=== PATIENT | male | born 1945 | race Caucasian/White ===

== ENCOUNTER 2016-08-31 11:04 | Observation (INO) | payer OTHER ==
[2016-08-31] MEDS ORDERED: IPRATROPIUM/ALBUTEROL 3 ML DEYVIAL ONE (11:26)
[2016-08-31] MEDS ORDERED: IPRATROPIUM/ALBUTEROL 3 ML DEYVIAL IH ONE (11:29)
[2016-08-31] MEDS ORDERED: methylPREDNISolone SOD SUCC 125 MG/2 ML VIAL IVP ONE (11:29)
--- NOTE | 2016-08-31 11:29 | EDPHY ---
H & P Time Seen by Provider: 08/31/16 11:12 HPI/ROS: CHIEF COMPLAINT: shortness of breath HISTORY OF PRESENT ILLNESS: Patient is a 71-year-old male with a history of COPD presents emergency department with increasing shortness of breath. He states earlier in the week his had a slight cold. Symptoms resolved. Yesterday felt so he was getting sick with the increasing cough. He took Mucinex. He then had increasing cough productive of white sputum. He has become more short of breath. He normally uses oxygen at night but he has had uses during the day. He has been using his Advair and ProAir with no relief. No fevers or chills. No leg pain or swelling. No chest pain. REVIEW OF SYSTEMS: My complete review of systems is negative except as mentioned in the HPI. Past Medical/Surgical History: Includes COPD Past surgical history: Denies Social history: The patient does not smoke currently Smoking Status: Former smoker Physical Exam: 36.9, 169/84, 116, 24, 64% on room air GENERAL: No acute distress, alert. HEENT: Eyes normal to inspection, normal pharynx, no signs of dehydration. NECK: No thyromegaly, no lymphadenopathy, supple. RESPIRATORY: decreased breath sounds bilaterally. The patient has scattered wheezing. Poor air movement. Mild retractions and accessory muscle use.. CVS: Regular rate and rhythm, no rubs, murmurs, or gallops. ABDOMEN: Soft, nontender, nondistended, no organomegaly. BACK: Normal to inspection, no CVA tenderness. SKIN: Normal color, no rash, warm, dry. No pallor. EXTREMITIES: No pedal edema, no calf tenderness, no Homans sign or cords, no joint swelling. NEURO/PSYCH: Alert and oriented, normal mood and affect, normal motor sensory exam. Constitutional: Initial Vital Signs Temperature (C) 36.9 C 08/31/16 11:07 Heart Rate 116 H 08/31/16 11:07 Respiratory Rate 24 H 08/31/16 11:07 Blood Pressure 169/84 H 08/31/16 11:07 O2 Sat (%) 64 L 08/31/16 11:07 O2 Delivery Mode Room Air Allergies/Adverse Reactions: No Known Allergies Allergy (Unverified 08/31/16 11:07) Home Medications: Medication Instructions Recorded Advair 100/50 (*) 08/31/16 LORAZEPAM 08/31/16 Proair Hfa Icu (*) 08/31/16 Medical Decision Making ED Course/Re-evaluation: In the emergency department patient was placed on oxygen. His O2 saturation was in the low 90s. Laboratory studies, EKG and chest x-ray were performed. I discussed the plan with the patient and answered all his questions. I rechecked the patient after receiving his DuoNeb. He stated he did feel better. On recheck his stay my as bedside. His retractions had decreased. He continued to have scattered wheezing. I ordered repeat albuterol neb. Chest x-ray showed no focal infiltrate. Underlying emphysema. Please refer the dictated report by the radiologist. I rechecked the patient while here. He was staying at the bedside. Still decreased breath sounds bilaterally on exam but is retractions had decreased. His oxygen saturation was 94% on 4 L. I discussed disposition options for the patient. He agrees with admission. I discussed the case with the hospitalist service. He is placed in the EACU. Differential Diagnosis: My differential includes but is not limited to COPD exacerbation, pneumonia, bronchitis, influenza, CHF, bacteremia, sepsis - Data Points Laboratory Results: Laboratory Results 08/31/16 11:40 08/31/16 11:40 08/31/16 08/31/16 11:50 11:40 WBC 8.11 10^3/uL (3.80-9.50) RBC 5.83 10^6/uL (4.40-6.38) Hgb 17.9 H g/dL (13.7-17.5) Hct 55.9 H % (40.0-51.0) MCV 95.9 fL (81.5-99.8) MCH 30.7 pg (27.9-34.1) MCHC 32.0 L g/dL (32.4-36.7) RDW 13.1 % (11.5-15.2) Plt Count 215 10^3/uL (150-400) MPV 10.1 fL (8.7-11.7) Neut % (Auto) 77.8 H % (39.3-74.2) Lymph % (Auto) 7.8 L % (15.0-45.0) [place] % (Auto) 13.1 H % (4.5-13.0) Eos % (Auto) 0.2 L % (0.6-7.6) Baso % (Auto) 0.7 % (0.3-1.7) Nucleat RBC Rel Count 0.0 % (0.0-0.2) Absolute Neuts (auto) 6.31 10^3/uL (1.70-6.50) Absolute Lymphs (auto) 0.63 L 10^3/uL (1.00-3.00) Absolute Monos (auto) 1.06 H 10^3/uL (0.30-0.80) Absolute Eos (auto) 0.02 L 10^3/uL (0.03-0.40) Absolute Basos (auto) 0.06 10^3/uL (0.02-0.10) Absolute Nucleated RBC 0.00 10^3/uL (0-0.01) Immature Gran % 0.4 % (0.0-1.1) Immature Gran # 0.03 10^3/uL (0.00-0.10) D-Dimer 0.29 ug/mLFEU (0.00-0.50) VBG Lactic Acid 1.6 mmol/L (0.7-2.1) Sodium 142 mEq/L (134-144) Potassium 5.0 mEq/L (3.5-5.2) Chloride 102 mEq/L (97-110) Carbon Dioxide 30 mEq/l (22-31) Anion Gap 10 mEq/L (8-16) BUN 18 mg/dL (7-23) Creatinine 1.1 mg/dL (0.7-1.3) Estimated GFR > 60 Glucose 105 H mg/dL (70-100) Calcium 9.7 mg/dL (8.5-10.4) Troponin I < 0.012 ng/mL (0-0.034) NT-Pro-B Natriuret Pep 443 H pg/mL (0-125) Influenza Typ A,B (DFA) NEGATIVE FOR FLU (NEGATIVE) Medications Given: Discontinued Medications Albuterol (Proventil Neb) 3 ml IH EDNOW ONE Stop: 08/31/16 12:23 Last Admin: 08/31/16 12:53 Dose: 3 ml Albuterol/Ipratropium (Duoneb) 3 ml IH EDNOW ONE Stop: 08/31/16 11:30 Last Admin: 08/31/16 11:46 Dose: 3 ml Methylprednisolone Sodium Succinate (Solu-Medrol) 125 mg IVP EDNOW ONE Stop: 08/31/16 11:30 Last Admin: 08/31/16 11:47 Dose: 125 mg Departure - Departure Disposition: [facility] Inpatient Acute Clinical Impression: Chronic obstructive pulmonary disease with acute exacerbation Condition: Good
[2016-08-31 11:52] LABS: % IMMATURE GRANULYOCYTES 0.4 % (0.0-1.1); ABSOLUTE IMMATURE GRANULOCYTES 0.03 10^3/uL (0.00-0.10); ADD DIFF? NO; ADD MORPH? NO; ADD SCAN? NO; ATYPICAL LYMPHOCYTE FLAG 20 (0-99); FRAGMENT RBC FLAG 0 (0-99); HEMATOCRIT 55.9 % (40.0-51.0); HEMOGLOBIN 17.9 g/dL (13.7-17.5); LEFT SHIFT FLG 0 (0-99); LIPEMIA HEMOLYSIS FLAG 80 (0-99); MEAN CELL HEMOGLOBIN 30.7 pg (27.9-34.1); MEAN CELL VOLUME 95.9 fL (81.5-99.8); MEAN PLATELET VOLUME 10.1 fL (8.7-11.7); PLATELET CLUMPS FLAG 20 (0-99); PLATELET COUNT 215 10^3/uL (150-400); RED BLOOD CELL COUNT 5.83 10^6/uL (4.40-6.38); RED CELL DISTRIBUTION WIDTH 13.1 % (11.5-15.2)
[2016-08-31 12:16] LABS: ANION GAP 10 mEq/L (8-16); CALCIUM 9.7 mg/dL (8.5-10.4); CARBON DIOXIDE 30 mEq/l (22-31); CHLORIDE 102 mEq/L (97-110); CREATININE 1.1 mg/dL (0.7-1.3); GLOMERULAR FILTRATION RATE > 60; GLUCOSE 105 mg/dL (70-100); SODIUM 142 mEq/L (134-144)
--- NOTE | 2016-08-31 12:19 | DX ---
PA and lateral chest. Clinical History: dyspnea Comparison Study: March 20, 2011.. Findings: Severe underlying hyperinflation is compatible COPD. There is associated bilateral hilar en largement suggestive of pulmonary arterial hypertension. No focal infiltrate, pleural effusion, mass seen.. Impression: Underlying emphysema. Probable pulmonary artery hypertension. No focal infiltrate..
[2016-08-31] MEDS ORDERED: ALBUTEROL 3 ML DEYVIAL IH ONE (12:22)
[2016-08-31 12:29] LABS: TROPONIN I < 0.012 ng/mL (0-0.034)
[2016-08-31] MEDS ORDERED: ALBUTEROL 3 ML DEYVIAL IH PRN (14:44)
[2016-08-31] MEDS ORDERED: ONDANSETRON DISINTEGRATING 4 MG TAB PO PRN (14:44)
[2016-08-31] MEDS ORDERED: ONDANSETRON 4 MG/2 ML VIAL IVP PRN (14:44)
[2016-08-31] MEDS ORDERED: ACETAMINOPHEN 325 MG TAB PO PRN (14:44)
[2016-08-31] MEDS ORDERED: LORazepam 0.5 MG TAB PO PRN (14:44)
[2016-08-31] MEDS: predniSONE 20 MG TAB PO SCH (15:13)
--- NOTE | 2016-08-31 15:15 | GHP ---
[f rep st] HISTORY AND PHYSICAL DATE OF ADMISSION: 08/31/2016 CHIEF COMPLAINT: Shortness of breath. HISTORY OF PRESENT ILLNESS: This is a 71-year-old male whose had an upper respiratory tract inf ection a couple of days ago. Yesterday he felt some chills, then took some Mucinex overnight, and de veloped significant cough. He has white sputum. He does feel short of breath. Chest feels tight. No fevers or chills. He does have a history of COPD and is on oxygen at night. REVIEW OF SYSTEMS: A 10-point review of systems was obtained and was negative. PAST MEDICAL HISTORY: COPD medications, Advair, lorazepam, and albuterol. SOCIAL HISTORY: Quit smoking 4 years ago but does still smoke occasionally, . FAMILY HISTORY: Reviewed and noncontributory. PHYSICAL EXAM: VITAL SIGNS: Afebrile, blood pressure is 127/88, heart rate 100, oxygen saturation w as initially 64% on room air and is now 94% on 3 L. GENERAL: The patient is well developed, no appa rent distress. HEENT: Nonicteric sclerae. Extraocular movements intact. Moist mucous membranes. NECK: Supple. No thyromegaly. LUNGS: Good effort. Significantly decreased breath sounds. No whe ezing or rhonchi. CARDIOVASCULAR: Regular rate and rhythm. No murmurs, gallops. ABDOMEN: Positiv e bowel sounds. Soft, nontender, nondistended. No hepatosplenomegaly. EXTREMITIES: No clubbing, c yanosis, or edema. SKIN: No rash. Intact. NEUROLOGIC: Alert and oriented x3. Moving all 4 extre mities equally. PSYCH: Normal affect. LABS: White count 8, hemoglobin elevated at 17.9, platelets of 215. Chemistries normal. Chest x-ra y, personally reviewed and interpreted, shows emphysema and possibly pulmonary arterial hypertension. ASSESSMENT: A 71-year-old male presenting with chronic obstructive pulmonary disease exacerbation. PLAN: 1. COPD exacerbation. We will treat with steroids and nebulizer treatments. I am not convinced of any bacterial infection requiring antibiotics at this point. 2. Polycythemia. I wonder if patient is actually hypoxic during the day or has not been compliant w ith his nighttime oxygen. We will see what his oxygen levels are here in the hospital. 3. Possible pulmonary arterial hypertension. This would go along with chronic hypoxia. We will cristopher ck an echocardiogram. /[id number]/MODL
[2016-08-31] MEDS: IPRATROPIUM/ALBUTEROL 3 ML DEYVIAL IH SCH ×2 (17:02→21:18)
[2016-08-31] MEDS ORDERED: LORazepam 1 MG TAB PO SCH (21:00)
[2016-08-31] MEDS: FLUTICASONE/SALMETER 100/50MCG DISKUS IH SCH (21:23)
[2016-09-01] MEDS: IPRATROPIUM/ALBUTEROL 3 ML DEYVIAL IH SCH ×2 (05:42→10:01)
[2016-09-01] MEDS ORDERED: ENOXAPARIN 40 MG/0.4 ML SYR SC SCH (09:00)
[2016-09-01] MEDS: predniSONE 20 MG TAB PO SCH (09:46)
[2016-09-01 09:56] VITALS: BP 114/74; PULSE 78; RESP 18; TEMP 97.2; O2SAT 90
[2016-09-01] MEDS: FLUTICASONE/SALMETER 100/50MCG DISKUS IH SCH (10:01)
--- NOTE | 2016-09-01 10:10 | ECHO ---
[id number] + + [address] : : [place] [address] : : [phone] + + Adult Echocardiographic Report + -----+ :Name: JR BALDERAS DStudy Date: 09/01/2016 08:33 AM : : Hospital Admission Number: [id number] Location : 144: :: 1945 Gender: Male Height: 70 in : :Age: 71 yrs Race: WH Weight: 175 lb : :Reason For Study: ? PAH : : BSA: 2.0 meters2 : :History: No previous : + -----+ MMode/2D Measurements & Calculations IVSd: 1.3 cm RVDd: 2.8 cm FS: 37.2 % LVOT diam: 1.9 cm LVPWd: 0.98 cm LVIDd: 4.9 cm EDV(Teich): 113.9 ml LVOT area: 2.8 cm2 LVIDs: 3.1 cm ESV(Teich): 37.6 ml EF(Teich): 67.0 % Normal Measurement Values: + + :LVIDd (3.5-5.7cm) IVSd (0.6-1.1cm) LVPWd (0.6-1.1cm) Aortic Root (2.0-3.7cm)Left Atrium (1.5-4.0cm): :LV Vol(d) (76-115ml) LV Vol(s) (29-48ml) Ejec Fraction (50-65%)PV Yosvany (0.6- 1.2m/s) TV Yosvany (0.4-1.0m/s) : :MV E Yosvany (0.8-1.0m/s)MV A Yosvany (0.3-1.0m/s)LVOT Yosvany (0.7-1.2m/s) Asc Ao Yosvany ( 0.9-1.8m/s) : + + Doppler Measurements & Calculations MV E max yosvany: MV V2 max: Ao V2 max: LV V1 max: 53.8 cm/sec 108.0 cm/sec 118.5 cm/sec 91.0 cm/sec MV A max yosvany: MV max PG: Ao max P.6 mmHg LV V1 max P.5 cm/sec 4.7 mmHg Ao mean P.3 mmHg MV E/A: 0.70 MV V2 mean: 2.0 mmHg LV V1 mean PG: MV dec time: 60.9 cm/sec Ao V2 mean: 1.0 mmHg 0.20 sec MV mean P.5 cm/sec LV V1 mean: 2.0 mmHg Ao V2 VTI: 16.8 cm 53.6 cm/sec MV V2 VTI: 24.7 cmAVA(I,D): 2.5 cm2 LV V1 VTI: 14.8 cm MVA(VTI): 1.7 cm2 YEYO(V,D): 2.2 cm2 SV(LVOT): 42.0 ml PA V2 max: TR max yosvany: 89.2 cm/sec 311.0 cm/sec PA max PG: TR max P.2 mmHg 38.7 mmHg RAP systole: 15.0 mmHg RVSP(TR): 53.7 mmHg Left Ventricle The left ventricle is normal in size and function. There is normal left ventricular wall thickness. Ejection Fraction = 65%. No regional wall motion abnormalities noted. Flattened septum is consistent with RV pressure/volume overload. Right Ventricle The right ventricle is mild to moderately dilated. Atria The left atrial size is normal. The right atrium is mildly dilated. The interatrial septum is intact with no evidence for an atrial septal defect. Mitral Valve The mitral valve is normal in structure and function. There is no mitral valve stenosis. There is no mitral regurgitation noted. Tricuspid Valve The tricuspid valve is normal in structure and function. There is no tricuspid stenosis. There is trace tricuspid regurgitation. Right ventricular systolic pressure is 53.7mmHg. There is Doppler evidence for severe pulmonary hypertension. Aortic Valve The aortic valve is normal in structure and function. There is no aortic stenosis. There is no aortic insufficiency. Pulmonic Valve The pulmonic valve is not well visualized. There is no pulmonic valvular stenosis. There is no pulmonic valvular regurgitation. Great Vessels The aortic root is normal size. Pericardium/Pleural There is a fat pad seen. There is no pericardial effusion. Conclusion A complete two-dimensional transthoracic echocardiogram was performed (2D, M-mode, Doppler and color flow Doppler). The study was technically difficult. The left ventricle is normal in size and function. Ejection Fraction = 65%. Flattened septum is consistent with RV pressure/volume overload. The right ventricle is mild to moderately dilated. Right ventricular systolic pressure is 53.7mmHg. There is Doppler evidence for severe pulmonary hypertension. The right atrium is mildly dilated. There is trace tricuspid regurgitation. The aortic valve is normal in structure and function. Final Reading Physician: Travis Boudreaux signed on 09/01/2016 10:09 AM Ordering Physician: Reny Ramires Performed By: Mere Reyes
--- NOTE | 2016-09-01 19:50 | GDS ---
[f rep st] DISCHARGE SUMMARY DISCHARGE DIAGNOSES: Include: 1. Acute chronic obstructive pulmonary disease exacerbation. 2. Chronic polycythemia. 3. Suspected pulmonary artery hypertension. 4. Suspected viral upper respiratory infection. HISTORY OF PRESENT ILLNESS: A 71-year-old male with known history of COPD, who presented with acute shortness of breath. For details of patient's initial presentation, please see the history and physi peggy dated 08/31/2016. CONSULTATIVE SERVICES ON THIS PATIENT: None. PROCEDURES ON THIS PATIENT: 08/31/2016, patient had a PATIENT lateral chest x-ray that showed emphys philippe with no acute infiltrates or edema. HOSPITAL COURSE BY ISSUE: Acute COPD exacerbation. Patient was wheezing on examination with symptom s consistent with an exacerbation of his underlying COPD. Patient was treated with IV steroids and i nhaled nebulized treatments. He had rapid improvement in both his symptoms, as well as his oxygen sa turations. On the day of disposition, he is satting 90% on room air. He will be discharged on a bur st of oral prednisone and continued on his home inhaled meds prescribed by Dr. Peoples, his pulmonolog ist. He is to follow with Dr. Peoples in the next 2-4 weeks post disposition for discharge followup, and this was discussed with Dr. Peoples. MEDICATIONS AT THE TIME OF DISPOSITION: Please reference medication reconciliation printed on 2016. PENDING STUDIES AT THE TIME OF THIS DICTATION: None. FOLLOWUP APPOINTMENTS: Include with Dr. Peoples in next 2-4 weeks, as well as with his primary care janey hughes as needed for ongoing management of his medical comorbidities. I spent greater than 30 minutes in the planning and coordination of this discharge. /[id number]/MODL
== END 2016-09-01 10:02 | disposition home or self-care (01) ==
LOC: F1N 13:19
PROVIDERS: ADMIT Internal Medicine; ATTEND Hospitalist
DX: J44.1 Chronic obstructive pulmonary disease with (acute) exacerbation (principal); D75.1 Secondary polycythemia
CPT/HCPCS: 71020; G0378; 96374